=== PATIENT | female | born 1985 | race Two or more races ===

== ENCOUNTER 2020-02-03 18:48 | Emergency (ER) | payer SELFPAY ==
[~2020-02-03] VITALS: Ht 154.9 cm; Wt 61.2 kg
[2020-02-03 21:20] VITALS: BP 127/94
[2020-02-03] MEDS ORDERED: TETANUS-DIPTH-ACEL PERTUSSIS 0.5ML SYR Tdap IM ONE (21:30)
== END 2020-02-03 23:06 | disposition home or self-care (01) ==
LOC: ER 18:48
DX: S62.632A Displaced fracture of distal phalanx of right middle finger, initial encounter for closed fracture (principal); S61.214A Laceration without foreign body of right ring finger without damage to nail, initial encounter; S86.812A Strain of other muscle(s) and tendon(s) at lower leg level, left leg, initial encounter; Z88.5 Allergy status to narcotic agent; V86.59XA Driver of other special all-terrain or other off-road motor vehicle injured in nontraffic accident, initial encounter; Y93.89 Activity, other specified; Y92.410 Unspecified street and highway as the place of occurrence of the external cause; Y99.8 Other external cause status
CPT/HCPCS: 12002; 73120; 90471; 90715